=== PATIENT | female | born 2000 ===

== ENCOUNTER 2022-06-09 14:30 | Outpatient (CLI) | payer BC, SELFPAY ==
--- NOTE | 2022-06-12 11:52 | WPDPFTINT ---
PFT Procedure Performed PFT Procedure Performed Spirometry with Pre/Post Bronchodilator Plethysmography (Lung Vol) Diffusing Cap (DLCO) Flow Vol Loop PFT Interpretation Lung volumes were measured with the body plethysmography method. Lung volumes are unremarkable. Spirometry showed normal expiratory flow rates and a normal FEV1 to FVC ratio of 81%. Following administration of a bronchodilator there was no significant increase in expiratory flow rates. Lung diffusion capacity is within the normal range. Flow volume loop is unremarkable. Impression: Lung volumes, spirometry, and lung diffusion capacity all within the normal range.
== END 2022-06-09 14:31 | disposition home or self-care (01) ==
PROVIDERS: Visit Provider Family Medicine
DX: R06.00 Dyspnea, unspecified (principal)
CPT/HCPCS: 94060; 94726; 94729